=== PATIENT | female | born 1940 | race Caucasian/White ===

== ENCOUNTER → 2019-01-24 | Outpatient (CLI) | payer MEDICARE, OTHER ==
[~2019-01-24] MED LIST: ALEVE220 MG PO; Aspirin EC81 MG PO; CALCIUM ANTACI200 MG PO; CHOL10002 PO; Hydrochloroth12.5 MG PO; LEVSOD75 PO; VAGIFEM10 MCG
== END | disposition home or self-care (01) ==
LOC: LAB SHORT 08:14 → PLD 08:14
DX: D48.5 Neoplasm of uncertain behavior of skin (principal)
CPT/HCPCS: 88305

== ENCOUNTER → 2020-08-06 | Outpatient (CLI) | payer MEDICARE, OTHER | END | disposition home or self-care (01) | LOC: LAB SHORT 14:44 → PLD 14:44 | DX: L57.0 Actinic keratosis (principal) | CPT/HCPCS: 88305 ==

== ENCOUNTER 2023-11-26 09:06 | Day surgery (SDC) | payer MEDICARE, OTHER ==
[~2023-11-26] VITALS: Ht 154.9 cm; Wt 70.8 kg
[~2023-11-26 09:06] MED LIST changes: +ALEN70 PO; +ASCO500 PO; +FentaNYL Citrate 50 MCG/ML 2 ML Injection ONE; +PREMARIN; +Vitamin D1000 UNI1 PO; +propofoL 20 ML IV ONE
[2023-11-26] MEDS ORDERED: Lidocaine HCl 2% 10 ML SDA ONE (09:12)
[2023-11-26] MEDS ORDERED: LIVALO2 MG (09:29)
[2023-11-26] MEDS ORDERED: Lactated Ringer's 1,000 ML IV ONE (09:45)
--- NOTE | 2023-11-26 09:46 | NUR ---
11/26/23 0946 Lisa Downey AT BEDSIDE. NO QUESTIONS OR CONCERNS AT THIS TIME
[2023-11-26] MEDS ORDERED: CeFAZolin Sodium 2,000 MG VIAL ONE (09:55)
[2023-11-26] MEDS ORDERED: NS 50 ML IV ONE (09:55)
[2023-11-26] MEDS ORDERED: Midazolam HCl 1MG / ML 2ML Vial ONE (10:30)
[2023-11-26 10:51] VITALS: BP 129/75
--- NOTE | 2023-11-26 11:07 | NUR ---
11/26/23 1107 Yunior Mosqueda PT'S HR IRREGULAR IN SDU. SHE DENIED CP, SOB, DIZZINESS, AND OTHER CARDIAC SYMPTOMS. NONE WERE OBSERVED. THIS IS BASELINE, PER PHYSICAL THERAPY INSTRUCTOR AND DR. KEY. DR. KEY WAS CONSULTED AND APPROVED D/C.
== END 2023-11-26 11:13 | disposition home or self-care (01) ==
LOC: ORSCSDS 09:06
PROVIDERS: Orthopaedic Surgery
PROC: 01N54ZZ Release Median Nerve, Percutaneous Endoscopic Approach (ICD-10-PCS; principal; 2023-11-26 10:30)
DX: G56.03 Carpal tunnel syndrome, bilateral upper limbs (principal); I10 Essential (primary) hypertension; Z68.30 Body mass index [BMI] 30.0-30.9, adult; Z79.899 Other long term (current) drug therapy
CPT/HCPCS: 82947; J0690; J2001; J2250; J2704; J3010

== ENCOUNTER 2024-06-03 10:55 | Emergency (ER) | payer MEDICARE, OTHER ==
[~2024-06-03] VITALS: Ht 154.9 cm; Wt 70.3 kg
[~2024-06-03 10:55] MED LIST changes: -FentaNYL Citrate 50 MCG/ML 2 ML Injection ONE; +LIVALO2 MG; +METF500 PO; -propofoL 20 ML IV ONE
[2024-06-03 11:29] LABS: BASOPHILS ABSOLUTE AUTO 0.08 K/mm3 (0.00-0.23); BASOPHILS PERCENT AUTO 1 % (0-2); EOSINOPHILS ABSOLUTE AUTO 0.19 K/mm3 (0.00-0.68); EOSINOPHILS PERCENT AUTO 2 % (0-6); Hematocrit 41.8 % (33.0-51.0); Hemoglobin 14.5 g/dL (11.5-16.0); IMMATURE GRAN ABSOLUTE AUTO 0.04 K/mm3 (0.00-0.10); IMMATURE GRAN PERCENT AUTO 1 % (0-1); LYMPHOCYTES ABSOLUTE AUTO 1.57 K/mm3 (0.84-5.20); LYMPHOCYTES PERCENT AUTO 20 % (21-46); MONOCYTES ABSOLUTE AUTO 0.64 K/mm3 (0.16-1.47); MONOCYTES PERCENT AUTO 8 % (4-13); Mean Corpuscular HGB 32.1 pg (26.0-34.0); Mean Corpuscular HGB Conc 34.7 g/dL (31.5-36.5); Mean Corpuscular Volume 93 fL (80-100); Mean Platelet Volume 9.9 fL (9.1-12.4); NEUTROPHILS ABSOLUTE AUTO 5.37 K/mm3 (1.96-9.15); NEUTROPHILS PERCENT AUTO 68 % (41-73); Platelet Count 275 K/mm3 (150-400); RDW Coefficient Variation 12.1 % (11.7-14.2); RDW Standard Deviation 41.5 fL (35.1-46.3); Red Blood Cell Count 4.52 M/mm3 (3.80-5.20); White Blood Cell Count 7.89 K/mm3 (4.00-11.30)
[2024-06-03 11:53] LABS: Source, Urine Clean Catch
[2024-06-03 11:58] LABS: Appearance, Urine Clear (Clear); Bilirubin, Urine Neg (Neg); Blood, Urine Neg (Neg); Glucose Qualitative, Urine Neg (Neg); Ketones, Urine Neg (Neg); Leukocyte Esterase, Urine Neg (Neg); Nitrite, Urine Neg (Neg); Protein, Urine Neg (Neg); Urobilinogen, Urine NORM (Normal)
[2024-06-03 12:11] LABS: Color, Urine Pale Yellow (P-Yellow)
[2024-06-03] MEDS ORDERED: DIAZEPAM2 M2 PO (12:20)
[2024-06-03] MEDS ORDERED: Ondansetron Odt8 MG MM (12:21)
[2024-06-03] MEDS ORDERED: ZOLPIDEM TARTRA10 MG PO (12:21)
[2024-06-03] MEDS ORDERED: METOPROLOL SUCC25 MG PO (12:22)
[2024-06-03] MEDS ORDERED: ZOLOFT50 MG PO (12:22)
[2024-06-03] MEDS ORDERED: Aspir 8181 MG PO (12:39)
[2024-06-03 13:00] LABS: Albumin, Blood 4.2 g/dL (3.4-5.0); Albumin/Globulin Ratio 1.1 (0.8-1.8); Bilirubin, Total 0.5 mg/dL (0.1-1.0); Bun/Creatinine Ratio 22.5 (12.0-20.0); Calcium, Blood 10.2 mg/dL (8.5-10.1); Creatinine, Blood 0.67 mg/dL (0.40-1.00); Globulin, Blood 3.8 g/dL (2.2-4.0); Magnesium, Blood 1.8 mg/dL (1.6-2.4); Potassium, Blood 3.5 mmol/L (3.5-5.5)
[2024-06-03 13:30] VITALS: BP 155/78
== END 2024-06-03 13:34 | disposition home or self-care (01) ==
LOC: ER 10:55
PROVIDERS: Emergency Medicine
DX: G45.9 Transient cerebral ischemic attack, unspecified (principal); Z79.84 Long term (current) use of oral hypoglycemic drugs; Z79.899 Other long term (current) drug therapy; Z88.8 Allergy status to other drugs, medicaments and biological substances
CPT/HCPCS: 70450; 80053; 81003; 83735; 85025; 93005; 93010; 99285-25

== ENCOUNTER → 2025-06-02 | Outpatient (CLI) | payer MEDICARE, OTHER ==
[~2025-06-02] MED LIST changes: +Aspir 8181 MG PO; +DIAZEPAM2 M2 PO; +METOPROLOL SUCC25 MG PO; +Ondansetron Odt8 MG MM; +ZOLOFT50 MG PO; +ZOLPIDEM TARTRA10 MG PO
== END | disposition home or self-care (01) ==
LOC: LAB SHORT 15:39 → LAB 15:39
DX: R30.0 Dysuria (principal)
CPT/HCPCS: 88108